=== PATIENT | female | born 1955 | race Caucasian/White ===

== ENCOUNTER → 2018-03-28 | Day surgery (SDC) | payer OTHER ==
[~2018-03-28] VITALS: Ht 157.5 cm; Wt 74.8 kg
--- NOTE | 2018-03-28 08:28 | Operative Report ---
Operative/Inv Procedure Report Surgery Date: 03/28/18 Name of Procedure: Right endoscopic carpal tunnel release Pre-Operative Diagnosis: Right carpal tunnel syndrome Post-Operative Diagnosis: Same Estimated Blood Loss: scant Surgeon/Boilermaker Welder: Ned Duarte MD Anesthesia: moderate sedation Drains: None Specimens: Non- Tourniquet: 13 minutes Complications: None Operative Indication: The patient had signs and symptoms and electrodiagnostic evidence of right carpal tunnel syndrome. She elected to undergo right endoscopic carpal tunnel release. She understood the planned procedure as well as the risks, benefits, complications, and alternatives and she signed the informed consent form. Operative/Procedure Note Note: After informed consent was obtained the patient was taken to the operating room and placed on the operating table in supine position with the right arm abducted on the arm table. After satisfactory sedation a median nerve block was administered at the distal volar wrist using a [id number] mixture of 9 mL of 0.25% plain Marcaine and 2% plain Xylocaine. 1 mL was injected at the volar wrist. The arm was prepped and draped in the usual standard fashion. Usual surface landmarks were identified. A transverse skin incision line was drawn at the volar wrist proximal and parallel to the distal wrist flexion crease. The arm was exsanguinated with an Esmarch bandage and the tourniquet was inflated to 250 mmHg. Total tourniquet time 13 minutes. A #15 scalpel blade was used to incise the volar wrist incision. The soft tissues were bluntly spread with a tenotomy scissors and 2 Ragnell retractors. The palmaris longus tendon was retracted radially thereby revealing the underlying antebrachial fascia. A tenotomy scissors was used to create a U shaped fascial flap which was held in place with a small double hook. The synovial elevator was then inserted into the carpal canal to clear adhesions from the undersurface of the transverse carpal ligament. This was followed by insertion of the serial carpal tunnel dilator hamate finders. Finally the ezTaxie Briana endoscopic device was inserted at the carpal canal in line with the fourth metacarpal ray. The distal border of the transverse carpal ligament was identified as was the distal fat pad. The blade was engaged and several passes were made through the distal half of the ligament to ensure that the distal border of the ligament was fully divided. The remainder of the ligament was then divided. The endoscope was removed and the proximal portion of the ligament was divided with the scissors under direct vision and the fascial flap was excised and discarded. Then working in retrograde fashion from distal to proximal, the antebrachial fascia was divided with the scissors on the ulnar side of the wrist. The median nerve was noted to be bulging at the volar wrist incision. 10 mL of 0.25% plain Marcaine were then instilled around the wound and instilled topically directly on the median nerve. The dermis was closed using interrupted inverted 5-0 Biosyn suture. The skin was further reapproximated using Dermabond and a Steri- Strip. 4 x 4's and Curlex were applied. The tourniquet was deflated. Coban was placed. There were no intraoperative complications. Sponge and needle counts were correct. The patient tolerated the procedure well and was taken to recovery room in stable condition.
== END ==
LOC: STS 01:59
DX: G56.01 Carpal tunnel syndrome, right upper limb (principal); M67.432 Ganglion, left wrist; Z87.891 Personal history of nicotine dependence; K21.9 Gastro-esophageal reflux disease without esophagitis; G47.33 Obstructive sleep apnea (adult) (pediatric); M19.90 Unspecified osteoarthritis, unspecified site
CPT/HCPCS: J2001; J2250